=== PATIENT | male | born 1980 | race Caucasian/White ===

== ENCOUNTER 2019-01-02 16:36 | Emergency (ER) | payer MEDICAID ==
[~2019-01-02] VITALS: Ht 162.6 cm; Wt 75.7 kg
[2019-01-02 16:53] VITALS: Ht 162.6 cm; Wt 75.7 kg
[2019-01-02] MEDS ORDERED: morphine 4 MG/ML VIAL IV STA (17:36)
[2019-01-02] MEDS ORDERED: SOD CHLORIDE 0.9% 1,000 ML IV STA (17:36)
[2019-01-02] MEDS ORDERED: FAMOTIDINE 20 MG INJ IV STA (17:36)
[2019-01-02] MEDS ORDERED: ONDANSETRON 4 MG INJ IV STA (17:36)
[2019-01-02 18:26] VITALS: BP 132/97; PULSE 95; RESP 18
[2019-01-02] MEDS ORDERED: SOD CHLORIDE 0.9% 100 ML ONE (18:49)
[2019-01-02] MEDS ORDERED: IOHEXOL 300MG/ML 150 ML BTL ONE (18:49)
[2019-01-02] MEDS ORDERED: SUCR1TAB56 PO (20:13)
[2019-01-02] MEDS ORDERED: ONDA4TAB14 PO (20:13)
--- NOTE | 2019-01-02 20:57 | ERD ---
ER Documentation Chief Complaint Chief Complaint Pt with CP and SOB Since Friday, AP today HPI This is a 38-year-old male that presents to the emergency department complaining of epigastric pain for the past 5 days. The patient indicates that the pain is a retrosternal burning pain. He states it is worse when he eats. Contrary to the triage note the patient states he is not experiencing any chest pressure or shortness of breath. Indicates the main pain is in the epigastric region but today began to radiate to the left lower quadrant. The pain was 8 out of 10 in intensity. He states he is afraid to eat because it hurts. He denies any recent travel or prolonged immobilization. The patient does not smoke tobacco. He denies any illicit drug use. He has not expands any diarrhea or constipation. He denies any past surgical history. He has no family history of coronary artery disease in his first-degree relatives. ROS All systems reviewed and are negative except as per history of present illness. Medications Home Meds Active Scripts Ondansetron (Ondansetron Odt) 4 Mg Tab.rapdis, 4 MG PO Q6H PRN for NAUSEA AND/OR VOMITING, #10 TAB Prov:YUKO NUNEZ MD 01/02/19 Sucralfate* (Carafate*) 1 Gm Tab, 1 GM PO BID, #30 TAB Prov:YUKO NUNEZ MD 01/02/19 PMhx/Soc History of Surgery: No Anesthesia Reaction: No Hx Neurological Disorder: No Hx Respiratory Disorders: No Hx Cardiac Disorders: No Hx Psychiatric Problems: No Hx Miscellaneous Medical Probl: No Hx Alcohol Use: No Hx Substance Use: No Hx Tobacco Use: No Smoking Status: Never smoker Physical Exam Vitals Vital Signs Date Temp Pulse Resp B/P (MAP) Pulse Ox O2 O2 Flow FiO2 Time Delivery Rate 01/02/19 95 18 132/97 100 Room Air 18:26 (109) 01/02/19 98.5 89 18 142/96 99 Room Air 17:10 (111) 01/02/19 98.5 98 18 156/83 98 16:53 (107) Physical Exam Constitutional:Well-developed. Well-nourished. HEENT:Normocephalic. Atraumatic.Pupils were equal round reactive to light. Moist mucous membranes.No tonsillar exudates. Neck: No nuchal rigidity. No lymphadenopathy. No posterior cervical spine tenderness or step-offs. Respiratory: Not using accessory muscles of respiration.Lungs were clear to auscultation bilaterally. No rhonchi. No rales. No wheezing. Cardiovascular: Regular rate regular rhythm.No murmurs. No rubs were appreciated.S1, S2 normal. Distal pulses are palpable 2+ bilaterally. GI: Abdomen was soft. Epigastric tenderness and tenderness in the left lower quadrant non Distended. No pulsatile abdominal masses or bruits. No rebound. No guarding. Bowel sounds were present and normal. Muscle skeletal: Full range of motion of both the upper and lower extremities bilaterally.Normal muscle tone.No assymetrical calf tenderness or swelling. Skin: No petechia, no purpura. No lesions on the palms or the soles of the feet. No maculopapular rash. NEURO: Patient was alert, awake, orientated x3.No facial droop. Gait observed and normal with no ataxia.Speech had regular rate and rhythm. No focal neurological deficits. Result Diagram: 01/02/19173901/02/19 174 Results 24 hrs Laboratory Tests Test 01/02/19 17:40 White Blood Count 9.2 10^3/ul Red Blood Count 5.50 10^6/ul Hemoglobin 16.0 g/dl Hematocrit 46.3 % Mean Corpuscular Volume 84.2 fl Mean Corpuscular Hemoglobin 29.1 pg Mean Corpuscular Hemoglobin Concent 34.6 g/dl Red Cell Distribution Width 11.9 % Platelet Count 271 10^3/UL Mean Platelet Volume 8.7 fl Immature Granulocytes % 0.200 % Neutrophils % 72.4 % Lymphocytes % 19.7 % Monocytes % 7.3 % Eosinophils % 0.2 % Basophils % 0.2 % Nucleated Red Blood Cells % 0.0 /100WBC Immature Granulocytes # 0.020 10^3/ul Neutrophils # 6.7 10^3/ul Lymphocytes # 1.8 10^3/ul Monocytes # 0.7 10^3/ul Eosinophils # 0.0 10^3/ul Basophils # 0.0 10^3/ul Nucleated Red Blood Cells # 0.0 10^3/ul Prothrombin Time 12.8 Sec Prothrombin Time Ratio 1.0 INR International Normalized Ratio 0.95 Activated Partial Thromboplast Time 28.8 Sec Sodium Level 144 mmol/L Potassium Level 4.0 mmol/L Chloride Level 105 mmol/L Carbon Dioxide Level 28 mmol/L Anion Gap 11 Blood Urea Nitrogen 20 mg/dl Creatinine 1.27 mg/dl Est Glomerular Filtrat Rate mL/min > 60 mL/min Glucose Level 112 mg/dl Calcium Level 9.7 mg/dl Total Bilirubin 0.3 mg/dl Direct Bilirubin 0.00 mg/dl Indirect Bilirubin 0.3 mg/dl Aspartate Amino Transf (AST/SGOT) 75 IU/L Alanine Aminotransferase (ALT/SGPT) 257 IU/L Alkaline Phosphatase 76 IU/L Troponin I < 0.012 ng/ml Total Protein 8.4 g/dl Albumin 4.7 g/dl Globulin 3.70 g/dl Albumin/Globulin Ratio 1.27 Amylase Level 86 U/L Lipase 88 U/L Current Medications Medications Dose Sig/Ryan Start Time Status Last (Trade) Ordered Route PRN Stop Time Admin Dose Reason Admin Sodium 1,000 ml @ Q1H STAT 01/02/19 DC 01/02/19 Chloride 1,000 mls/hr IV 17:36 18:18 01/02/19 18:35 Morphine 4 mg ONCE STAT 01/02/19 DC 01/02/19 Sulfate IV 17:36 18:19 (morphine) 01/02/19 17:38 Ondansetron 4 mg ONCE STAT 01/02/19 DC 01/02/19 HCl (Zofran IV 17:36 18:19 Inj) 01/02/19 17:38 Famotidine 20 mg ONCE STAT 01/02/19 DC 01/02/19 (Pepcid Iv) IV 17:36 18:19 01/02/19 17:38 Sodium 100 ml @ ud STK-MED 01/02/19 DC Chloride ONCE .ROUTE 18:49 01/02/19 18:50 Iohexol 150 ml STK-MED 01/02/19 DC (Omnipaque ONCE .ROUTE 18:49 300mg/ ml) 01/02/19 18:50 Procedures/MDM The patient presented to the emergency department with epigastric pain. My differential diagnosis included but was not limited to abdominal aortic aneurysm, choledocholithiasis, gallstone ileus, renal colic, pyelonephritis, pancreatitis, peptic ulcer disease, atypical myocardical infarction, mesenteric ischemia, GERD, pulmonary infarction. The patient was placed on a front desk monitor, continuous pulse oximetry and IV access was established by nursing staff. An EKG was obtained to rule out myocardial ischemia. There was mild elevation of LFTs to suggest ductal obstruction, cholangitis, cholecystiitis or hepatitis. Given that the urinalysis did not show bilirubinuria, my suspicion for common duct obstruction or hepatitis was low. 12 Lead EKG tracing ordered and reviewed by myself showed: Normal sinus rhythm of 95 bpm and no arrhythmia. NC interval normal. QRS duration normal. No ST segment elevation No ST segment depression. No changes consistent with acute ischemia. Obtain a chest radiograph there is no free air underneath the diaphragm and no infiltrates or cardiomegaly. I obtained a CT scan of the patient's abdomen due to the localization of his pain. This was reviewed by the radiologist and indicate the following: No CT evidence of mass, lymphadenopathy, or acute inflammatory process. Degenerative changes of the spine at L5-S1, with mild retrolisthesis. Observation Note: Time: 4 hours Family Hx: No Hypertension Evaluation: Multiple exams showed improving symptoms and no evidence of worsening of his symptoms. The patient was now pain-free. I indicated I cannot rule out the possibility of peptic ulcer disease as his pain significant improved after he received a GI cocktail. The patient will follow up with an outpatient endoscopy. He was sent home with sucralfate. The patient was discharged home in fair condition. They were instructed to return to the emergency department at any time if there was any worsening of their condition. The patient stated they would follow up with their PCP in the next 24-48 hours to initiate a suitable medication regimen under the care of their PCP as well as to allow their PCP to monitor any drug reactions. The patient was discharged home with prescriptions after they gave informed consent to the new medication. They were also fully informed by myself on the adverse effects and adverse drug interactions in order to provide adequate safeguards to prevent possible adverse reactions to medications. Departure Diagnosis: Primary Impression: Epigastric pain Condition: Fair Patient Instructions: Gastritis Vs. Ulcer Referrals: NO PRIMARY,CARE PHYSICIAN (PCP) YUKO NUNEZ MD Jan 02, 2019 20:57
[2019-01-07] MEDS ORDERED: IBUP-1542 PO (01:47)
== END 2019-01-02 20:29 | disposition home or self-care (01) ==
LOC: E/R 16:36
DX: R10.13 Epigastric pain (principal)
CPT/HCPCS: 71045; 74177; 80053; 82150; 83690; 84484; 85025; 85610; 85730; 93005; 96374; 96375; J2270; J2405; J7030; Q9967; Z7502; Z7610